=== PATIENT | female | born 1960 ===

== ENCOUNTER 2017-09-21 09:10 | Emergency (ER) | payer BC ==
[2017-09-21 09:47] VITALS: BP 159/91; PULSE 72; RESP 18; TEMP 98.6; O2SAT 99
[2017-09-21] MEDS ORDERED: Oxycodone/Acetaminophen 5/325 mg Tab PO STA (10:45)
[2017-09-21] MEDS ORDERED: Oxycodone/Acetaminophen 5/325 mg Tab ONE (10:48)
--- NOTE | 2017-09-21 11:50 | ED PDOC ---
HPI: Back Time Seen by Provider: 09/21/17 09:54 Chief Complaint (Nursing): Back Pain Chief Complaint (Provider): Back pain History Per: Patient History/Exam Limitations: no limitations Onset/Duration Of Symptoms: Days (x3) Current Symptoms Are (Timing): Still Present Quality Of Discomfort: Other (severe) Previous Symptoms: Back Pain, Chronic Pain Additional Complaint(s): Iris Clark is a 56 year old female with a past medical history of chronic back pain, hypertension, and hyperlipidemia, who presents to the ED with complains of right sided back pain, onset 3 days ago. Patient reports that pain is worse with laying down, walking, and moving, and accompanied by radiation of pain down the right leg. She states she took Motrin with no relief of symptoms. Patient denies any fever, numbness, weakness, or urinary symptoms. She offers no other medical complaints at this time. PMD: none provided Past Medical History Reviewed: Historical Data, Nursing Documentation, Vital Signs Vital Signs: Last Vital Signs Temp 98.6 F 09/21/17 09:45 Pulse 72 09/21/17 09:45 Resp 18 09/21/17 09:45 BP 159/91 H 09/21/17 09:45 Pulse Ox 99 09/21/17 09:45 - Medical History PMH: HTN, Chronic Pain (back) - Surgical History Surgical History: Other surgeries: ankcle surgery - Family History Family History: States: Unknown Family Hx - Home Medications Home Medications: Ambulatory Orders Medication Instructions Recorded Methylprednisolone [Medrol Dose 4 mg PO ASDIR #21 mg 09/21/17 Pack (21 tabs)] oxyCODONE/Acetaminophen [Percocet 1 ea PO Q6 PRN #12 tab 09/21/17 5/325 mg Tab] - Allergies Allergies/Adverse Reactions: Allergies Allergy/AdvReac Type Severity Reaction Status Date / Time No Known Allergies Allergy Verified 09/21/17 09:44 Review of Systems ROS Statement: Except As Marked, All Systems Reviewed And Found Negative Constitutional: Negative for: Fever Musculoskeletal: Positive for: Back Pain (right sided, radiating to right leg) Neurological: Negative for: Weakness, Numbness Physical Exam - Reviewed Nursing Documentation Reviewed: Yes Vital Signs Reviewed: Yes - Physical Exam Appears: Positive for: Non-toxic, No Acute Distress Head Exam: Positive for: ATRAUMATIC, NORMAL INSPECTION, NORMOCEPHALIC Skin: Positive for: Normal Color Eye Exam: Positive for: Normal appearance Neck: Positive for: Normal, Painless ROM Gastrointestinal/Abdominal: Positive for: Normal Exam, Soft. Negative for: Tenderness Back: Positive for: Other (right paraspinal tenderness, upper buttock) Extremity: Positive for: Other (straight leg raise, uncomfotable). Negative for : Pedal Edema, Deformity, Swelling Neurologic/Psych: Positive for: Alert, Oriented - ECG O2 Sat by Pulse Oximetry: 99 (RA) Pulse Ox Interpretation: Normal Medical Decision Making Medical Decision Making: Time: 10:46 Impression: Back Pain Differentials: Sciatic, lumbar radiculopathy Plan: --Toradol 30 mg IM --Percocet 1 tab PO Scribe Attestation: Documented by Elba Seo, acting as a scribe for Alin Whitehead MD Provider Scribe Attestation: All medical record entries made by the Scribe were at my direction and personally dictated by me. I have reviewed the chart and agree that the record accurately reflects my personal performance of the history, physical exam, medical decision making, and the department course for this patient. I have also personally directed, reviewed, and agree with the discharge instructions and disposition. Disposition - Clinical Impression Clinical Impression: Back pain - Patient ED Disposition Is Patient to be Admitted: No Doctor Will See Patient In The: Office Counseled Patient/Family Regarding: Studies Performed, Diagnosis, Need For Followup - Disposition Referrals: [facility] [Outside] Disposition: Routine/Home Disposition Time: 13:00 Condition: GOOD Additional Instructions: Take your medications as instructed. Follow up with your PCP in 2-3 days. Prescriptions: Methylprednisolone [Medrol Dose Pack (21 tabs)] 4 mg PO ASDIR #21 mg oxyCODONE/Acetaminophen [Percocet 5/325 mg Tab] 1 ea PO Q6 PRN #12 tab PRN Reason: Pain, Severe (8-10) Instructions: Sciatica Forms: [facility] ED School/Work Excuse
== END 2017-09-21 13:45 | disposition home or self-care (01) ==
LOC: H.ER 09:10
DX: M54.9 Dorsalgia, unspecified (principal); E78.5 Hyperlipidemia, unspecified; G89.29 Other chronic pain; I10 Essential (primary) hypertension
CPT/HCPCS: 96372; 99281; J1885